=== PATIENT | male | born 1960 | race Caucasian/White ===

== ENCOUNTER 2018-06-09 12:08 | Emergency (ER) | payer SELFPAY ==
[~2018-06-09] VITALS: Ht 170.2 cm; Wt 71.3 kg
[2018-06-09 12:20] VITALS: BP 123/89
[2018-06-09] MEDS ORDERED: KETOROLAC 30 MG/1 ML ONE (18:50)
[2018-06-09] MEDS ORDERED: METHOCARBAMOL 750 MG TABLET ONE (18:50)
== END 2018-06-09 14:21 | disposition left against medical advice (07) ==
LOC: ED 14:15
DX: R53.83 Other fatigue (principal); Z53.21 Procedure and treatment not carried out due to patient leaving prior to being seen by health care provider

== ENCOUNTER 2018-06-09 18:16 | Emergency (ER) | payer OTHER ==
[~2018-06-09] VITALS: Ht 167.6 cm; Wt 70.6 kg
[2018-06-09 18:31] VITALS: BP 146/90
[2018-06-09] MEDS ORDERED: KETOROLAC 30 MG/1 ML IM ONE (19:00)
[2018-06-09] MEDS ORDERED: METHOCARBAMOL 750 MG TABLET PO ONE (19:00)
[2018-06-09] MEDS ORDERED: OXYcodone/APAP 5/325MG TABLET PO ONE (19:30)
[2018-06-09] MEDS ORDERED: OXYcodone/APAP 5/325MG TABLET ONE (19:37)
== END 2018-06-09 20:04 | disposition home or self-care (01) ==
LOC: ED 19:45
DX: S39.012A Strain of muscle, fascia and tendon of lower back, initial encounter (principal); X58.XXXA Exposure to other specified factors, initial encounter; Y93.89 Activity, other specified; Y92.89 Other specified places as the place of occurrence of the external cause; Y99.8 Other external cause status
CPT/HCPCS: 72110; 96372; 99284; J1885

== ENCOUNTER 2018-06-09 22:00 | Emergency (ER) | payer OTHER ==
[~2018-06-09] VITALS: Ht 167.6 cm; Wt 72.0 kg
[2018-06-09 22:10] VITALS: BP 148/81
[2018-06-09] MEDS ORDERED: OXYcodone/APAP 5/325MG TABLET ONE (22:29)
[2018-06-09] MEDS ORDERED: DEXAMETHASONE 4 MG TABLET ONE (22:30)
[2018-06-09] MEDS ORDERED: OXYcodone/APAP 5/325MG TABLET PO ONE (23:00)
[2018-06-09] MEDS ORDERED: DEXAMETHASONE 4 MG TABLET PO ONE (23:00)
== END 2018-06-09 23:42 | disposition home or self-care (01) ==
LOC: ED 22:44
DX: M54.5 Low back pain (principal); G89.29 Other chronic pain
CPT/HCPCS: 99283

== ENCOUNTER 2018-06-11 12:38 | Emergency (ER) | payer OTHER ==
[~2018-06-11] VITALS: Ht 167.6 cm; Wt 70.5 kg
[2018-06-11 12:45] VITALS: BP 146/85
[2018-06-11] MEDS ORDERED: KETOROLAC 30 MG/1 ML IM ONE (13:00)
[2018-06-11] MEDS ORDERED: CYCLOBENZAPRINE 10 MG TABLET PO SCH (13:00)
[2018-06-11] MEDS ORDERED: KETOROLAC 30 MG/1 ML ONE (13:13)
[2018-06-11] MEDS ORDERED: CYCLOBENZAPRINE 10 MG TABLET ONE (13:13)
== END 2018-06-11 13:39 | disposition home or self-care (01) ==
LOC: ED 13:35
DX: M48.56XA Collapsed vertebra, not elsewhere classified, lumbar region, initial encounter for fracture (principal); M54.5 Low back pain; G89.29 Other chronic pain; F17.200 Nicotine dependence, unspecified, uncomplicated
CPT/HCPCS: 96372; 99283; J1885

== ENCOUNTER 2018-06-13 12:01 | Emergency (ER) | payer OTHER ==
[~2018-06-13] VITALS: Ht 167.6 cm; Wt 71.8 kg
[2018-06-13 12:26] VITALS: BP 151/90
[2018-06-13] MEDS ORDERED: METHOCARBAMOL 750 MG TABLET ONE (12:50)
[2018-06-13] MEDS ORDERED: KETOROLAC 30 MG/1 ML ONE (12:50)
[2018-06-13] MEDS ORDERED: KETOROLAC 30 MG/1 ML IM ONE (13:00)
[2018-06-13] MEDS ORDERED: METHOCARBAMOL 750 MG TABLET PO ONE (13:00)
== END 2018-06-13 14:02 | disposition home or self-care (01) ==
LOC: ED 13:50
DX: G89.29 Other chronic pain (principal); M54.5 Low back pain; M54.6 Pain in thoracic spine
CPT/HCPCS: 96372; 99283; J1885